=== PATIENT | female | born 1960 | race Caucasian/White ===

== ENCOUNTER 2017-05-12 21:42 | Emergency (ER) | payer OTHER ==
[2017-05-12] MEDS ORDERED: Succinylcholine Chloride 20 mg/mL 5 mL Inj ONE (21:43)
--- NOTE | 2017-05-12 21:49 | ED.REPORT ---
HPI-Trauma Multiple Date of Service May 12, 2017 ED Provider: Junior Lopez MD A 56 year old female with a history of EtOH abuse presents to the ED via EMS with loss of consciousness secondary to an unwitnessed fall down a two story staircase that occurred just prior to arrival. Full trauma was initiated upon arrival to the ED and the patient was placed in a C-collar. EMS report finding that patient at the bottom of an apartment staircase, unresponsive with evidence of bowel incontinence. Patient was bradycardic en route with a heart rate in the 50's. GCS is 7 upon arrival to the ED. The patient's daughter reported to medics that she was recently released from an alcohol detox center. History is limited due to the patient's current mental status. Nursing Notes Stated Complaint: FULL TRAUMA Nursing Notes Reviewed: Yes Allergies: Coded Allergies: No Known Allergies (Unverified , 05/13/17) General Time Seen by Provider: 21:47 Chief Complaint Head pain/injury, Loss of consciousness Hx Obtained From: EMS Unable to Obtain Hx: Mental status Arrived By: Ambulance Onset Occurred: Just prior to arrival Symptom Duration: Since onset Progression Since Onset: Unchanged Caused by: Fall down stairs Context: Occurred at: Home Associated with: Reports: Incontinence, Loss of consciousness... Pertinent Negative: Pt denies other symptoms Past Medical History Past Medical History Alcohol abuse Past Surgical History Gastric tubes Smoking History Unknown if Ever Smoker Social History Alcohol Use: 1-3 per day Drug Use: In recovery Other Social History: Local resident Ambulatory Status Independent Unable to Obtain History Unable to Obtain Due to: Limited PMH due to patient mental status Review of Systems Unable to Obtain ROS Mental status Physical Exam Initial Vital Signs Vital Signs (First) Date Time Temp Pulse Resp B/P Pulse Ox O2 Delivery O2 Flow Rate FiO2 05/12/17 22:57 100 Initial Vitals BP - 112/66 HR - 50 Initial VS: Reviewed Skin: Warm, Dry, No cyanosis Alertness: Positive: Responds to pain stimuli Appearance / Presentation: Positive: Intoxicated Head / Eyes: Normocephalic, PERRL (pupils 5mm) Trauma - General: Positive: Laceration (back of the scalp) Hematoma to the right periorbital region Gaze is disconjugate Trauma - Neck Specific: Positive: Immobilized - C Collar Respiratory / Chest: No respiratory distress, No chest tenderness (to palpation ), No crepitus Cardiovascular: Heart rate NL, Regular rhythm, Heart sounds NL, Peripheral circulation NL, Pulses = bilaterally Abdomen: Atraumatic Back: Atraumatic Mental Status: Positive: Responds to painful stim NEURO: GCS = 7 Trauma - ENT Specific: Negative: Dentition avulsion, Dentition chip, Dentition fracture..., Dentition luxation, Periodontal injury Upper Extremity / MS: Neurologic intact, Vascular intact Lower Extremity / Pelvis / MS: Atraumatic, Neurologic intact, Vascular intact, Pelvis stable Trauma / Burn / Environmental: Positive: Abrasion (Multiple abrasions to bilateral knees) Interpretation & Diagnostics Lab Results Interpretation Result Diagram: 05/12/17219905/12/172199 Test 05/12/17 22:00 05/13/17 00:51 White Blood Count 10.2th/mm3 (3.8-10.1) Red Blood Count 4.84mil/mm3 (3.90-5.20) Hemoglobin 14.8g/dL (12.0-15.6) Hematocrit 43.3% (35.0-46.0) Mean Corpuscular Volume 89.5fL (81-100) Mean Corpuscular Hemoglobin 30.6pg (27.0-35.0) Mean Corpuscular Hemoglobin Concent 34.2% (32.0-37.0) Red Cell Distribution Width 13.3% (12.3-15.4) Platelet Count 326bil/L (150-400) Neutrophils (%) (Auto) 48.3% (40-74) Lymphocytes (%) (Auto) 37.7% (14-46) Monocytes (%) (Auto) 7.3% (4-12) Eosinophils (%) (Auto) 6.1% (0-5) Basophils (%) (Auto) 0.3% (0-3) Prothrombin Time 10.4sec (8.1-12.5) Prothromb Time International Ratio 0.97ratio Activated Partial Thromboplast Time 22.3sec (22.8-33.0) Sodium Level 140mEq/L (134-144) Potassium Level 3.9mEq/L (3.5-5.2) Chloride Level 104mEq/L (97-108) Carbon Dioxide Level 18mmol/L (18-29) Blood Urea Nitrogen 14mg/dL (6-24) Creatinine 0.56mg/dL (0.57-1.00) Estimat Glomerular Filtration Rate 160mL/min (>59) Glucose Level 161mg/dL (60-99) Lactic Acid Level 0.2mmol/L (0.4-2.0) Calcium Level 8.6mg/dL (8.5-10.1) Magnesium Level 2.2mg/dL (1.6-2.6) Total Bilirubin 0.2mg/dL (0.0-1.2) Aspartate Amino Transf (AST/SGOT) 46U/L (0-50) Alanine Aminotransferase (ALT/SGPT) 28U/L (0-32) Alkaline Phosphatase 79U/L (25-150) Troponin T 0.010ug/L (0.0-0.011) Total Protein 7.0g/dL (6.4-8.4) Albumin 4.1g/dL (3.4-5.0) Lipase 97U/L (13-60) Hold Villarreal Top Tube Received (Received) Alcohols 287mg/dL (0-10) Urine Color Yellow (YELLOW) Urine Appearance Clear (CLEAR,HAZY) Urine pH 6.0 (5.0-8.0) Urine Specific [place] 1.013 (1.003-1.035) Urine Protein Negativemg/dL (NEG,TRACE) Urine Glucose (UA) 100mg/dL (NEGATIVE) Urine Ketones Negativemg/dL (NEGATIVE) Urine Occult Blood Negative (NEGATIVE) Urine Nitrite Negative (NEGATIVE) Urine Bilirubin Negative (NEGATIVE) Urine Urobilinogen Normalmg/dL (NORMAL) Urine Leukocyte Esterase Negative (NEGATIVE) Urine RBC 0-2/hpf (0-2) Urine WBC 0-5/hpf (0-5) Urine Epithelial Cells Occasional/hpf (NONE-MOD) Urine Crystals None seen (NONE SEEN) Urine Bacteria None/hpf (NONE-FEW) Urine Hyaline Casts None/lpf (NONE) Urine Granular Casts None seen (NONE SEEN) Urine Waxy Casts None seen (NONE SEEN) Urine Red Blood Cell Casts None seen (NONE SEEN) Urine White Blood Cell Casts None seen (NONE SEEN) Urine Mucus None seen (None Seen) Urine Trichomonas None seen (NONE SEEN) Urine Yeast None (NONE SEEN) Urinalysis Comment None Lab Results Interpretation: EtOH = 287 Blood Gas pH - 7.251 pCO2 - 50 pO2 - 208.0 cHCO3 - 21.1 cBase - -6.1 ECG Interpretation ECG Interpretation: Sinus Rhythm Rate 77 Time: 22:32 Interpreted by: ED physician X-Ray Chest Interpretation Chest Xray Interpretation: No pneumothorax Normal heart size No infiltrate No obvious rib fracture View: Portable Interpretation / Wet Read by: Wet read ED physician CT Head Interpretation IMPRESSION: 1. Nondisplaced fracture right temporal/parietal skill; right occipital skull 2. Right frontal temporal parietal subdural hematoma with right-to left midline shift measuring approx. 7.8 mm 3. Questionable tiny parafalcine subdural hematoma 4. Trace amount subarachnoid hemorrhage 5. Right periorbital soft tissue hematoma 6. High posterior midline scalp laceration with right temporoparietal scalp swelling Study: Head CT no contrast Interpretation / Wet Read by: Interpret - Radiologist ([facility]) CT Chest Interpretation IMPRESSION Endotracheal tube and gastric tubes present Mild compressive atelectasis bilateral lung bases Study type: Chest CT no contrast Interpretation / Wet Read by: Interpret - Radiologist ([facility]) CT Abd / Pelvis Interpretation IMPRESSION Gastric tube present Urinary bladder distention Study type: Abdominal CT no contrast Interpretation / Wet Read by: Interpret - Radiologist ([facility]) CT C-Spine Interpretation IMPRESSION: Degenerative spinal changes Nondisplaced occipital skull fracture Endotracheal tube and gastric tubes are present Study type: CT no contrast Interpretation / Wet Read by: Interpret - Radiologist ([facility]) Procedures Intubation Time: 22:09 Procedure Performed by: ED physician Consent / Setup / Site Prep: No consent - emergent, Time-out performed, Oxygen administered, Pulse oximeter applied, dynamicist applied, Hand hygiene observed, Stand sterile technique Patient Position: C-spine immobilized Blade / ET Tube / Route: [place] scope, Route: oral Neuromuscular Agent: Succinylcholine, Rocuronium (6mg) ET Confirmation: Direct visualization, BS equal, End tidal CO2 device, CXR Complications: None Post-Procedure: Condition improved, Tolerated procedure well, Patient stable Re-Eval/Medical Decision Med Decision/Clinical Course Med Decision/Clinical Course: 56-year-old alcoholic presents after a stair fall, with much decreased mental status and Santosh Coma Score seven. She was intubated after rapid sequence induction with defasciculating dose of rock urogram and etomidate and succinylcholine. CT scan was obtained which showed a skull fracture in the right temporal parietal back to the occipital bone. There was underlying subdural hematoma and possibly some small parenchymal bleeds. There is midline shift. No other significant findings on neck chest abdomen pelvis. Transported via helicopter to [facility]. Re-Evaluation/Progress #1: Time of Eval: 22:01 Re-Evaluation/Progress Note: Intubation is considered based on pt GCS. Re-Evaluation/Progress #2: Time of Eval: 22:09 Re-Evaluation/Progress Note: Patient is intubated. She tolerates the procedure without complications. Re-Evaluation/Progress #3: Time of Eval: 22:32 Re-Evaluation/Progress Note: ET tube is rechecked. Vitals are stable. Re-Evaluation/Progress #4: Time of Eval: 23:21 Re-Evaluation/Progress Note: Reviewed CT scan. Plan to contact [facility] for transfer. Re-Evaluation/Progress #5: Time of Eval: 23:39 Re-Evaluation/Progress Note: Family is informed of the patient's condition. They are informed of the plan to transfer to [facility] for surgery. Consultation : Call Returned at: 23:24 Data Entry Processor: Will see patient, Agrees with eval, Agrees with plan, Accepts admit Note: Merged With [facility] - Dr. Jr Blancas Counseled Regarding: Diagnosis, Lab results, Need for transfer Discharge & Departure Impression: Primary Impression: Subdural hematoma Additional Impressions: Skull fracture Encounter type: initial encounter Skull bone/location: parietal bone Fracture type: closed Qualified Code: S02.0XXA - Fracture of vault of skull, initial encounter for closed fracture Fall down stairs Encounter type: initial encounter Qualified Code: W10.8XXA - Fall (on) (from ) other stairs and steps, initial encounter Alcohol intoxication Complication of substance-induced condition: uncomplicated Qualified Code: F10.120 - Alcohol abuse with intoxication, uncomplicated Disposition: Transfer, Acute Care Facility (Merged With [facility]) Transfer Requested at: 23:21 Receiving Hospital: [facility] Transfer Accepted: Yes Transfer Accepted at: 23:29 Transfer Reason: Higher level of care, Trauma Spoke with: Emergency physician (Dr. Jr Blancas) Patient Status: Stable for transfer Patient Informed: Unable Discharge Condition All VS Reviewed: Yes Condition: Critical Referrals: Shanae Flores MD (Family) Crit Care Except Billable Proc Time Spent: 30-74 minutes (60 minutes) Services Performed: Patient management by me, Time spent at bedside, Reviewing test results, Reviewing imaging, Discussing patient care, Documentation in record, Time with fam/surrogate, Other (ranging transfer) Scribe Attestation Portions of this note were transcribed by Tony Franks. I, Dr. Lopez personally performed the history, physical exam and medical decision-making; I reviewed and confirmed the accuracy of the information in the transcribed note. Signed by: George Schwartz, 05/13/17 0021. copies to: Shanae Flores MD, Christopher W MD May 12, 2017 21:49 TONY FRANKS May 12, 2017 21:58
[2017-05-12] MEDS ORDERED: 0.9% Sodium Chloride 1,000 ML IV ONE (21:50)
[2017-05-12] MEDS ORDERED: Vecuronium 1,000 mCg/mL 10 mL Inj ONE (22:02)
[2017-05-12 22:07] LABS: BASOPHILS % (AUTO) 0.3 % (0-3); EOSINOPHILS % (AUTO) 6.1 % (0-5); MONOCYTES % (AUTO) 7.3 % (4-12); Mean Corpuscular Hemoglobin 30.6 pg (27.0-35.0); Mean Corpuscular Volume 89.5 fL (81-100); NEUTROPHILS % (AUTO) 48.3 % (40-74); Platelet Count 326 bil/L (150-400)
[2017-05-12 22:11] LABS: INR 0.97 ratio
[2017-05-12 22:28] LABS: TROPONIN T 0.01 ug/L (0.0-0.011)
[2017-05-12 22:29] LABS: Magnesium 2.2 mg/dL (1.6-2.6)
--- NOTE | 2017-05-12 22:47 | ABG ---
DateTimeAnalyzed 22:41:00 -_ pH ____7.251 - 7.350 7.450 pCO2 ___49.6__ -mmHg 35.0 45.0 pO2 208 -mmHg 69.0 116 HCO3- ___21.1__ -mmol/L 22.0 26.0 ABE ___-6.1__ -mmol/L -2.0 2.0 tHb ___14.5__ -g/dL O2Hb ___89.3__ -% COHb ____8.4__ -% MetHb ____1.1__ -% sO2 ___98.7__ -% FIO2 ___50.0__ -% PEEP ____5.0__ -cmH2O Set_RR ___18.0__ -b/min Vt __390.0__ -L Drawn By LT - Date/Time Notified____ 22:47:00 -_ Notified By LT - Notified Whom DR TRIPP - B 758 -mmHg tO2 ___18.6__ -Vol% Flip test _Positive -
[2017-05-12 22:57] VITALS: O2SAT 100
[2017-05-13 01:08] LABS: APPEARANCE,URINE CLEAR (CLEAR,HAZY); COLOR,URINE YELLOW (YELLOW); OCCULT BLOOD,URINE NEGATIVE (NEGATIVE); UROBILINOGEN,URINE NORMAL (NORMAL)
--- NOTE | 2017-05-13 07:27 | DRSVH ---
PROCEDURE: CT CERVICAL SPINE WITHOUT CONTRAST ([id number]) INDICATIONS: fall down stairs, altered LOC TECHNIQUE: Noncontrast 3 mm thick sections acquired from the skull base to the T4 level. Sagittal and coronal r eformats were then constructed. For radiation dose reduction, the following was used: automated exp osure control, adjustment of mA and/or kV according to patient size. COMPARISON: [facility], CT, CT BRAIN WO CON, 05/12/2017, 23:14. [facility], CR, XR CHEST 1VW (PORTABLE), 05/12/2017, 22:15. FINDINGS: Image quality: Excellent. Bones: No fractures or dislocations. Visualized superior ribs are intact. There is a nondisplaced right occipital fracture. Severe degenerative disc disease at C5-C6 and moderate degenerative disc di sease at C6-C7. Soft tissues: Prevertebral soft tissues are normal in thickness. No paravertebral hematomas. No ap ical pneumothoraces. There is an endotracheal tube just above yfn. Nasogastric is noted in cervic al esophagus. IMPRESSION: 1. No cervical spine fracture. 2. Nondisplaced right occipital bone fracture. 3. Degenerative disc disease in cervical spine. No significant discrepancy with the cnc machinist 2nd shift radiology preliminary report. Dictated by: García Maza M.D. on 05/13/2017 at 7:20 Approved by: García Maaz M.D. on 05/13/2017 at 7:25
--- NOTE | 2017-05-13 07:42 | DRSVH ---
PROCEDURE: CT BRAIN WITHOUT CONTRAST ([id number]) INDICATIONS: fall down stairs, altered LOC TECHNIQUE: Noncontrast 4.5 mm thick angled axial sections acquired from the foramen magnum to the vertex, with c oronal reformats. COMPARISON: None. FINDINGS: Image quality: Excellent. CSF spaces: There is a large subdural hematoma on the right cerebral convexity measuring 8 mm in thi ckness. Hyperdense blood is also seen in the right sylvian fissure, interhemispheric fissures anterio rly and posteriorly, and along the falx. Basal cisterns are partially effaced. Ventricles are normal in size and shape. Brain: Hyperdense blood is seen along the cerebral sulci of the right hemisphere consistent with trau matic subarachnoid bleed. There is effacement of cerebral sulci. There is mass effect with 7 mm leftw shantel midline shift.. No intracranial masses. Castaneda-white matter interface is normal. Skull and face: There are several nondisplaced fractures involving the right frontal bone, parietal b one, temporal parietal bone and occipital bone. Mild soft tissue contusion in the right preorbital a nd parietal areas. Scalp laceration posteriorly at midline. Sinuses: Visualized sinuses and mastoids are clear. IMPRESSION: 1. Large subdural hematoma measuring 8 mm in thickness over the right hemisphere. There is also hyper dense blood within the right sylvian fissure, interhemispheric fissures anteriorly and posteriorly, a nd along the falx. 2. Small amount of subarachnoid blood along the cerebral sulci of the right hemisphere. 3. Effacement of cerebral sulci consistent with cerebral edema. There is mass effect with 8mm leftwar d midline shift. 4. Nondisplaced right skull fractures. 5. Multiple areas of tissue contusion. No significant discrepancy with the retail shift leader radiology preliminary report. Dictated by: García Maza M.D. on 05/13/2017 at 7:25 Approved by: García Maza M.D. on 05/13/2017 at 7:39
--- NOTE | 2017-05-13 07:53 | DRSVH ---
PROCEDURE: CT CHEST, ABDOMEN AND PELVIS WITH CONTRAST ([id number]) INDICATIONS: fall down stairs, altered LOC TECHNIQUE: After the administration of intravenous contrast, 5 mm thick sections acquired from the lung apices t o the symphysis. 5 mm thick coronal and sagittal reformats were acquired. Additional 7 mm thick cor onal maximum intensity projection (MIP) reformats acquired through the lungs. Optional 10-minute del ayed imaging may be performed from the kidneys to the bladder. For radiation dose reduction, the fol lowing was used: automated exposure control, adjustment of mA and/or kV according to patient size. COMPARISON: None. FINDINGS: Image quality: Excellent. CHEST: Lungs: Dependent atelectasis at lung bases bilaterally. No pulmonary contusions or lacerations. No acute airspace opacities. No pneumothorax or hemothorax. Central and peripheral airways appear diane nt and normal in caliber. Mediastinum: There is an endotracheal tube at yfn. No mediastinal hematomas. Heart size is rossana l. No pericardial effusion. Thoracic aorta and pulmonary arteries demonstrate normal size and enhan cement. No mediastinal or hilar adenopathy. Esophagus is normal in caliber. No hiatal hernia. Chest wall: No rib fractures. No subcutaneous emphysema. No axillary or supraclavicular adenopathy . Thyroid gland is normal. Bilateral breast prostheses. ABDOMEN: Solid organs: Liver and spleen are normal in size and enhancement, without lacerations. Gallbladder is normal. Biliary system is non-dilated. Pancreas enhances normally, without transection. No adr enal hematomas. Both kidneys enhance normally, without hydronephrosis or lacerations. Peritoneum and bowel: A nasogastric tube is seen with the tip in stomach. No free fluid or air. Une nhanced bowel loops demonstrate normal wall thickness and caliber. Nodes and vessels: No retroperitoneal or mesenteric adenopathy. Aorta and inferior vena cava are no rmal in size and enhancement. Miscellaneous: No ventral hernias. PELVIS: Genitourinary: The bladder is distended. Bladder wall thickness is normal. Miscellaneous: No inguinal hernias or adenopathy. Bones: Pelvic ring and hip joints appear intact. No vertebral compression fractures. IMPRESSION: 1. No acute traumatic injuries in the thorax, abdomen or pelvis. 2. The endotracheal tube tip is at the level of yfn. 3. Distended urinary bladder. No significant discrepancy with the outpatient pharmacy manager radiology preliminary report. Dictated by: García Maza M.D. on 05/13/2017 at 7:47 Approved by: García Maza M.D. on 05/13/2017 at 7:51
--- NOTE | 2017-05-13 08:42 | DRSVH ---
PROCEDURE: X-RAY CHEST ONE VIEW, PORTABLE ([id number]) INDICATIONS: fall, altered LOC TECHNIQUE: One view of the chest was acquired. COMPARISON: None. FINDINGS: Surgical changes and devices: None. Lungs and pleura: No pleural effusions or pneumothorax. Lungs are clear. Mediastinum: Mediastinal contours appear normal. Heart size is normal. Bones and chest wall: No suspicious bony lesions. Overlying soft tissues appear unremarkable. IMPRESSION: No acute cardiopulmonary disease. Dictated by: Erick Roach [facility] Interpreted: Suleiman Umana MD on 05/13/2017 at 8:40 Transcribed by: ANDREW on 05/13/2017 at 8:40 Approved by: Suleiman Umana M.D. on 05/13/2017 at 11:52
--- NOTE | 2017-05-13 09:56 | DRSVH ---
PROCEDURE: X-RAY CHEST ONE VIEW, PORTABLE ([id number]) INDICATIONS: POST INTUBATION TECHNIQUE: One view of the chest was acquired. COMPARISON: [facility], CT, CT CHEST ABD PELVIS W CON, 05/12/2017, 23:14. [facility], CR, XR CHEST 1VW (PORTABLE), 05/12/2017, 21:44. FINDINGS: Surgical changes and devices: ETT present it extending slightly into the right mainstem bronchus. Lungs and pleura: No pleural effusions or pneumothorax. Lungs are clear. Mediastinum: Mediastinal contours appear normal. Heart size is normal. Bones and chest wall: No suspicious bony lesions. Overlying soft tissues appear unremarkable. IMPRESSION: Low positioning of the ETT with tip slightly extending into the right mainstem bronchus. Dictated by: Erick Roach RR Interpreted: Suleiman Umana MD on 05/13/2017 at 9:51 Transcribed by: ANDREW on 05/13/2017 at 9:54 Approved by: Suleiman Umana M.D. on 05/13/2017 at 11:52
== END 2017-05-13 00:17 | disposition short-term general hospital (02) ==
LOC: EDUNIT# 21:42 → EDBD 21:42 → SED 21:42
DX: S06.5X9A Traumatic subdural hemorrhage with loss of consciousness of unspecified duration, initial encounter (principal); S02.0XXA Fracture of vault of skull, initial encounter for closed fracture; W10.8XXA Fall (on) (from) other stairs and steps, initial encounter; Y93.9 Activity, unspecified; Y92.009 Unspecified place in unspecified non-institutional (private) residence as the place of occurrence of the external cause; Y99.8 Other external cause status; F10.120 Alcohol abuse with intoxication, uncomplicated
CPT/HCPCS: 31500; 36415; 36620; 70450; 71010; 71260; 72125; 74177; 80053; 81001; 82375; 82803; 83605; 83690; 83735; 84484; 85025; 85610; 85730; 86850; 93005; 94002; 94799; 99291; G0390; G0480; J0330; J2250; Q9967

== ENCOUNTER 2017-06-13 12:08 | Emergency (ER) | payer OTHER ==
[~2017-06-13] VITALS: Ht 157.5 cm; Wt 45.0 kg
[2017-06-13 12:21] VITALS: BP 103/6; PULSE 79; RESP 16; O2SAT 97
--- NOTE | 2017-06-13 12:37 | ED.REPORT ---
HPI-Headache Date of Service Jun 13, 2017 ED Provider: Sarbjit Hillman MD Pt is a 56 year old female with a history of EtOH abuse who presents to the ED complaining of worsening intermittent headache localizing to her sinuses onset since her hemicraniotomy. She c/o associated subjective fever, left sided weakness, and sinus pain. She denies numbness and weakness. The pt reports that her pain is relieved with "drugs," but she does not know what specifically helps. When asked questions and to perform tasks during the physical exam, the pt repeatedly states "I hurt." She received OTC pain medication prior to arrival. The pt was discharged [address] [facility] with oxycodone prescribed for the pain. There have been reportedly instances where the pt was unable to participated in physical therapy secondary to her headaches. Pt reports post- operative bacterial meningitis concern, but she has finished her antibiotics. HPI is difficult to obtain secondary to pt's condition. Nursing Notes Stated Complaint: MIGRAINE Chief Complaint: Neuro Symptoms/ Deficits Nursing Notes Reviewed: Yes ([employer], [employer] not reconciled) Allergies: Coded Allergies: No Known Allergies (Unverified , 06/13/17) General Time Seen by MD: 12:29 Chief Complaint Headache Hx Obtained From: Patient Arrived By: Walk-in Sudden in Onset?: No Symptom Duration: Intermittent Location: : Frontal sinus: Generalized Quality: Painful Severity: Current: Severe Severity: Maximum: Severe Recent Healthcare: Recent doctor visit, Recent hospitalization Similar Sx Previous: No Past Medical History Past Medical History Alcohol abuse Past Surgical History Gastric tubes s/p decompressive hemicraniotomy for subdural hematoma on 05/13/17 Smoking History Unknown if Ever Smoker Social History Alcohol Use: 1-3 per day Drug Use: In recovery Other Social History: Good social support, Local resident Ambulatory Status Independent Review of Systems + sinus pain Constitutional: Denies: Fever (subjective), Weakness - generalized Neurologic: Reports: Focal weakness, Headache, Denies: Numbness Complete sys rev & neg: except as marked. Physical Exam Initial Vital Signs Vital Signs (First) Date Time Temp Pulse Resp B/P Pulse Ox O2 Delivery O2 Flow Rate FiO2 06/13/17 12:21 37.3 79 16 103/6 97 Room Air Initial VS: Reviewed, Vital signs normal Respiratory: Breath sounds normal, Clear to auscultation, No respiratory distress Cardiovascular: Regular rate & rhythm, Heart sounds normal, Intact distal pulses Abdomen / GI: Soft, Non-tender Extremities: Vascular intact, Neuro intact Skin: Warm, Dry, No cyanosis Psychiatric: Mood/affect normal, Behavior normal General/Constitutional: Awake, Alert Head / Eyes: EOMI HEAD/EYES: The pt is s/p decompressive hemicraniotomy. She complains of facial pain more than a headache. Her pupils are normal. Neck: Atraumatic, No meningismus, Full range of motion There are no clinical signs of meningitis. Neurologic: CN II - XII intact She has left sided weakness, but she won't answer questions whether it is new or worse; her left arm is more effected than the left leg. She is a decent historian, but she is very focused on pain and frustrated. She has mild confusion, but my impression is this is baseline. Interpretation & Diagnostics Lab Results Interpretation Result Diagram: 06/13/17 1644 06/13/17 1644 Test 06/13/17 16:26 06/13/17 16:44 06/13/17 16:45 Hold Urine Received (Received) White Blood Count 7.7th/mm3 (3.8-10.1) Red Blood Count 3.97mil/mm3 (3.90-5.20) Hemoglobin 11.5g/dL (12.0-15.6) Hematocrit 36.2% (35.0-46.0) Mean Corpuscular Volume 91.2fL (81-100) Mean Corpuscular Hemoglobin 29.0pg (27.0-35.0) Mean Corpuscular Hemoglobin Concent 31.8% (32.0-37.0) Red Cell Distribution Width 13.3% (12.3-15.4) Platelet Count 527bil/L (150-400) Neutrophils (%) (Auto) 51.2% (40-74) Lymphocytes (%) (Auto) 31.2% (14-46) Monocytes (%) (Auto) 9.8% (4-12) Eosinophils (%) (Auto) 7.3% (0-5) Basophils (%) (Auto) 0.4% (0-3) Sodium Level 141mEq/L (134-144) Potassium Level 4.1mEq/L (3.5-5.2) Chloride Level 102mEq/L (97-108) Carbon Dioxide Level 25mmol/L (18-29) Blood Urea Nitrogen 7mg/dL (6-24) Creatinine 0.39mg/dL (0.57-1.00) Estimat Glomerular Filtration Rate 244mL/min (>59) Glucose Level 106mg/dL (60-99) Calcium Level 9.2mg/dL (8.5-10.1) Total Bilirubin 0.2mg/dL (0.0-1.2) Aspartate Amino Transf (AST/SGOT) 44U/L (0-50) Alanine Aminotransferase (ALT/SGPT) 40U/L (0-32) Alkaline Phosphatase 274U/L (25-150) Total Protein 7.1g/dL (6.4-8.4) Albumin 3.8g/dL (3.4-5.0) Hold Villarreal Top Tube Received (Received) Lab Results Interpretation: CBC normal CMP normal CT Head Interpretation IMPRESSION: 1. Interval postoperative changes related to a large right craniotomy. The bone flap has not been replaced, yet. 2. Significant interval decrease in size/degree of subdural hematoma overlying the right frontal region. No new or increasing intracranial hemorrhage is evident. 3. New area of encephalomalacia involving right temporal lobe may be related to subacute infarction within this region. The need for better characterization utilizing MRI may be determined clinically. 4. Nonspecific rightward midline shift is of uncertain clinical significance given the craniotomy defect. Dictated by: Eitan Morejon M.D. on 06/13/2017 at 12:23 Study: Head CT no contrast Interpretation / Wet Read by: Interpret - Radiologist Re-Eval/Medical Decision Med Decision/Clinical Course This is a 56-year-old female who is status post a hemicraniectomy at [facility] last month has been recovering at [facility] who is brought in for worsening headaches. She has had reports having chronic headaches, including while she is in the hospital at [facility], presents on pain medicines. She describes an frontal sinus-like pain, and it is been to the point this interfered with her physical therapy she has had no new trauma. There are no new deficits she has chronic left-sided deficit. Patient's a bit volatile, does not appear to overt discomfort, but keeps asking for pain medicines and something she is miserable. She has status post massive craniectomy and has to wear a helmet. The incisions are clean dry and healed, there was report of questionable "leakage" but there is no signs of drainage, leakage, CSF from the years nose or mostly healed wound. A CT was obtained, and the findings are as expected, but their questions for this. Reviewed by [facility]-the images been transferred were waiting a callback. Source of Hx: Old records Re-Evaluation/Progress #1: Time of Eval: 15:39 Re-Evaluation/Progress Note: Pt rechecked. 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 to consult. All questions addressed. Re-Evaluation/Progress #2: Time of Eval: 18:07 Re-Evaluation/Progress Note: Pt rechecked. Updated pt on progress. They expressed interest in a fdc. All questions addressed. Re-Evaluation/Progress #3: Time of Eval: 19:10 Re-Evaluation/Progress Note: Pt rechecked by Dr. Jalloh. Discussed plan for transfer to [facility] for cranioplasty. Pt understands and agrees with plan. All questions addressed at this time Re-Evaluation/Progress #4: Time of Eval: 19:59 Re-Evaluation/Progress Note: Pt rechecked due to pt's question about admission. Consultation #1: Call Returned at: 13:59 Food Products Tester: Agrees with eval, Agrees with plan Note: Consulted with [facility]. Discussed pt's case. Consultation #2: Call Returned at: 18:09 Food Products Tester: Agrees with eval, Agrees with plan Note: Consulted with EVARISTO Brantley. Discussed pt's case and interest in fdc. Counseled Regarding: Diagnosis, Lab results Discharge & Departure Shift Change Sign-Out Patient Care Transferred: Yes Discussed Complaint(s): Yes Laboratory Evaluation: Lab evaluation discussed Imaging Studies: Imaging discussed Discharge Condition All VS Reviewed: Yes Condition: Stable Referrals: NOPCP (PCP) Care Transferred to: Dr. Jalloh Care Transferred at: 18:00 EDSupervising Provider for APC: Bandar Jalloh MD Scribe Attestation Portions of this note were transcribed by Rosanne Ramirez. I, Dr. Hillman personally performed the history, physical exam and medical decision-making; I reviewed and confirmed the accuracy of the information in the transcribed note. Signed by: George Kimble, 06/13/17. Attending Statement Patient care was transferred to ri by Dr. Hillman pending call back from neurosurgery at [facility]. I spoke with the neurosurgeon Dr. Reno who thought the patient needed a cranioplasty within the next couple days and requested transfer to [facility]. Patient was transferred to [facility] in stable condition. copies to: Sarbjit Pryor MD Jun 13, 2017 12:37 Rosanne Shipley Jun 13, 2017 12:47 Clair Wang Jun 13, 2017 19:11 Bandar Jalloh MD Jun 13, 2017 19:31
[2017-06-13] MEDS ORDERED: HYDROmorphone 0.5 mg/0.5 mL iSecure Syringe IVPUSH ONE (13:00)
--- NOTE | 2017-06-13 13:31 | DRSVH ---
PROCEDURE: CT BRAIN WITHOUT CONTRAST ([id number]) INDICATIONS: HENDERSON s/p craneictomy for subdural TECHNIQUE: Noncontrast 4.5 mm thick angled axial sections acquired from the foramen magnum to the vertex, with c oronal reformats. COMPARISON: [facility], CT, CT BRAIN WO CON, 05/12/2017, 23:14. FINDINGS: Image quality: Diagnostic. Brain: Interval craniotomy and overlying the right frontal parietal-temporal region is present. A sm all amount of residual hemorrhage within the subdural space is identified along the anterior margin o f the right frontal/temporal region versus postoperative change. However, no new or increasing intra cranial hemorrhage is identified. There is mild rightward midline shift identified, which measures a pproximately 7-10 mm on the current exam, not significantly changed since the previous study, which i s of uncertain clinical significance, particularly given the craniotomy without replacement of the rose ne flap. No new extra-axial fluid collection is identified. The orbits are grossly unremarkable. Subtle areas of low attenuation within the periventricular white matter of the supratentorial brain a re present. A more focally prominent area of low attenuation involving the right temporal lobe is id entified, which is new since the prior study. The ventricles are non-dilated. Bones: Interval postoperative changes related to a large right frontoparietal craniotomy is evident. The bone flap is not yet replaced. Otherwise, the calvarium and visualized facial bones are grossly intact. The imaged paranasal sinuses and mastoid air cells are clear. IMPRESSION: 1. Interval postoperative changes related to a large right craniotomy. The bone flap has not been r eplaced, yet. 2. Significant interval decrease in size/degree of subdural hematoma overlying the right frontal reg ion. No new or increasing intracranial hemorrhage is evident. 3. New area of encephalomalacia involving right temporal lobe may be related to subacute infarction within this region. The need for better characterization utilizing MRI may be determined clinically. 4. Nonspecific rightward midline shift is of uncertain clinical significance given the craniotomy de fect. Dictated by: Eitan Morejon M.D. on 06/13/2017 at 12:23 Approved by: Eitan Morejon M.D. on 06/13/2017 at 12:29
[2017-06-13 14:01] VITALS: BP 110/59; PULSE 66; RESP 20; O2SAT 96
[2017-06-13 16:45] VITALS: BP 120/59; PULSE 62; RESP 14; O2SAT 97
[2017-06-13 16:46] VITALS: BP 109/48
[2017-06-13 16:57] LABS: BASOPHILS % (AUTO) 0.4 % (0-3); EOSINOPHILS % (AUTO) 7.3 % (0-5); MONOCYTES % (AUTO) 9.8 % (4-12); Mean Corpuscular Volume 91.2 fL (81-100); NEUTROPHILS % (AUTO) 51.2 % (40-74); Platelet Count 527 bil/L (150-400)
[2017-06-13] MEDS ORDERED: HYDROmorphone 1 mg/mL Inj IVPUSH ONE (17:40)
[2017-06-13] MEDS ORDERED: Ondansetron 2 mg/mL 2 mL Inj IVPUSH PRN (19:40)
[2017-06-13] MEDS ORDERED: HYDROmorphone 1 mg/mL Inj IM PRN (19:40)
[2017-06-13 19:49] VITALS: BP 100/60; PULSE 70; RESP 16; O2SAT 98
[2017-06-13 20:23] VITALS: BP 100/60; PULSE 70; RESP 16; O2SAT 98
== END 2017-06-13 20:24 | disposition short-term general hospital (02) ==
LOC: SED 13:20
DX: R51 Headache (principal); R50.9 Fever, unspecified; R53.1 Weakness; J34.89 Other specified disorders of nose and nasal sinuses; Z98.890 Other specified postprocedural states
CPT/HCPCS: 36415; 70450; 80053; 85025; 96372; 96374; 96375; 96376; 99285; J1170; J2405